=== PATIENT | male | born 1945 | race Two or more races ===

== ENCOUNTER 2022-12-10 09:22 | Day surgery (SDC) | payer OTHER ==
[~2022-12-10] VITALS: Ht 172.7 cm; Wt 93.0 kg
[~2022-12-10 09:22] MED LIST: SYNTHROID75 MCG PO; TAMS0.4C PO; VALSARTAN80 MG PO
[2022-12-10] MEDS ORDERED: KETO10TA2 PO (13:14)
[2022-12-10] MEDS ORDERED: TRAMADOL HCL50 MG PO (13:14)
[2022-12-10] MEDS ORDERED: MIRALAX17 GM PO (13:14)
[2022-12-10] MEDS ORDERED: TYLENOL ARTHRI650 MG PO (13:14)
== END 2022-12-10 17:30 | disposition home or self-care (01) ==
LOC: CIR.AMB 09:22
PROVIDERS: ATTEND Surgery
DX: K40.21 Bilateral inguinal hernia, without obstruction or gangrene, recurrent (principal); K42.9 Umbilical hernia without obstruction or gangrene; I10 Essential (primary) hypertension; Z20.822 Contact with and (suspected) exposure to COVID-19
CPT/HCPCS: 49651; 49591; C1781